=== PATIENT | female | born 1985 | race Caucasian/White ===

== ENCOUNTER 2018-07-15 12:02 | Emergency (ER) | payer SELFPAY, OTHER ==
[2018-07-15] MEDS ORDERED: HYDROCODONE/APAP (5/325) TAB PO (15:30)
[2018-07-15] MEDS: KETOROLAC 60 MG INJ IM (15:35)
== END 2018-07-15 16:06 | disposition home or self-care (01) ==
LOC: FTE 12:02
DX: L02.413 Cutaneous abscess of right upper limb (principal); F17.210 Nicotine dependence, cigarettes, uncomplicated
CPT/HCPCS: 81025; 96372; 99284-25

== ENCOUNTER 2019-01-30 01:32 | Emergency (ER) | payer SELFPAY | END 2019-01-30 02:40 | disposition left against medical advice (07) | LOC: E/R 01:32 | DX: Z53.21 Procedure and treatment not carried out due to patient leaving prior to being seen by health care provider (principal) ==